=== PATIENT | female | born 1995 | race Caucasian/White ===

== ENCOUNTER 2017-12-03 01:18 | Emergency (ER) | payer OTHER, SELFPAY ==
[2017-12-03] MEDS ORDERED: METOCLOPRAMIDE 10 MG/2mL INJ ONE (01:41)
[2017-12-03] MEDS ORDERED: NA CHLORIDE 0.9% 1,000 ML ONE (01:42)
[2017-12-03] MEDS ORDERED: DIPHENHYDRAMINE 50 MG/ML VIAL ONE (01:42)
[2017-12-03 02:15] LABS: Absolute Lymphocytes (CBC) 4.5 K/uL (0.7-4.9); Absolute Monocytes 0.9 K/uL (0.1-1.3); Absolute Neutrophil 5.8 K/uL (1.8-8.0); Basophils % 0.9 % (0-1.3); Eosinophils % 1.2 % (0-4.4); Hematocrit 38.1 % (36.0-45.0); Lymphocytes % 39.5 % (15.3-44.8); MCH 28.7 pg (27.0-35.0); MCV 86.9 fL (80-100); MPV 8.6 fL (7.6-11.3); Monocytes % 7.7 % (3.3-12.3); RBC Red Blood Cell Count 4.38 M/uL (3.86-4.86)
[2017-12-03 02:24] LABS: Urine Blood NEGATIVE (NEG); Urine Glucose NEGATIVE (NEG); Urine Protein NEGATIVE (NEG); Urine Specific Gravity 1.025 (1.005-1.030)
[2017-12-03 02:35] LABS: ALT/SGPT 27 IU/L (10-60); AST/SGOT 23 IU/L (10-42); Alkaline Phosphatase 65 IU/L (42-121); BUN Blood Urea Nitrogen 15 mg/dL (6-20); Bicarbonate 24 mEq/L (21-31); Bilirubin Total 0.2 mg/dL (0.3-1.2); Glucose Level 117 mg/dL (65-120); Potassium 3.6 mEq/L (3.6-5.0); Protein, Total 7.7 g/dL (6.0-8.3); Sodium Level 138 mEq/L (135-145)
[2017-12-03 02:39] LABS: Urine Bacteria 20-50 /HPF (<20); Urine Culture Reflex Order REFLEXED; Urine RBC NONE SEEN /HPF (NONE SEEN)
--- NOTE | 2017-12-03 03:08 | EDPHYS ---
Physician Documentation [facility] Name: Leslie Knott Age: 22 yrs Sex: Female : 1995 Arrival Date: 12/03/2017 Time: 01:20 Bed 23 Private MD: ED Physician Angel Rosario HPI: 12/03 01:30 This 22 yrs old Female presents to ER via Ambulatory with complaints of jmm Headache, Worst Ever, Nausea. 01:30 The patient complains of pain to the left occipital area and right occipital area. The jm patient describes the headache as aching. Onset: The symptoms/episode began/occurred gradually, 5 hour(s) ago. Headache History: The patient has had previous headaches and this one is more severe than previous episodes. This is a 22 year old female with a history of migraine headache that presents to the ED with a gradual onset headache beginning at approx 8 pm this evening. Patient states the pain intensified beginning at 10 pm. Patient had no relief with tylenol. . 01:30 Patient denies changes in her vision but admits to photo sensitivity. . 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 - Social history:: Smoking status: Patient/guardian denies using tobacco. - Ebola Screening: : No symptoms or risks identified at this time. ROS: 01:30 Constitutional: Negative for fever, chills, and weight loss, Cardiovascular: Negative [facility] for chest pain, palpitations, and edema, Respiratory: Negative for shortness of breath, cough, wheezing, and pleuritic chest pain, Abdomen/GI: Negative for abdominal pain, nausea, vomiting, diarrhea, and constipation, Back: Negative for injury and pain, : Negative for injury, bleeding, discharge, and swelling, MS/Extremity: Negative for injury and deformity, Skin: Negative for injury, rash, and discoloration. 01:30 Neuro: Positive for headache. 01:30 All other systems are negative. Exam: 01:30 Head/Face: atraumatic. Chest/axilla: Normal chest wall appearance and motion. jmm Nontender with no deformity. No lesions are appreciated. Cardiovascular: Regular rate and rhythm. No gallops, murmurs, or rubs. Full/Equal distal pulses. Respiratory: Lungs have equal breath sounds bilaterally, clear to auscultation. No rales, rhonchi or wheezes noted. No increased work of breathing, no retractions or nasal flaring. 01:30 Constitutional: The patient appears in no acute distress, alert, awake. 01:30 Eyes: Pupils: equal and reactive to light, Extraocular movements: intact throughout. 01:30 Musculoskeletal/extremity: ROM: intact in all extremities. 01:30 Neuro: Orientation: is normal, Mentation: is normal, Memory: is normal, Cranial nerves: extraocular movements are intact, Facial palsy and sensory deficits are absent. Gait: is steady. Vital Signs: 01:26 BP 131 / 79; Pulse 76; Resp 18; Temp 98.1; Pulse Ox 100% on R/A; Weight 108.86 kg (R); ak1 Height 5 ft. 6 in. (167.64 cm) (R); Pain 5/10; 02:33 BP 109 / 66; Pulse 69; Resp 16; Pulse Ox 100% on R/A; mb3 03:03 BP 108 / 70; Pulse 68; Resp 16; Pulse Ox 98% on R/A; mb3 01:26 Body Mass Index 38.74 (108.86 kg, 167.64 cm) ak1 MDM: 01:30 Data reviewed: vital signs, nurses notes. [facility] 01:34 Patient medically screened. [facility] 02:23 Response to treatment: the patient's symptoms have markedly improved after treatment. [facility] Transition of care: After a detail discussion of the patient's case, care is transferred to Angel Rosario MD. 03:06 Data reviewed: radiologic studies, CT scan. [facility] 12/03 01:36 Order name: CBC with Diff; Complete Time: 02:25 [facility] 12/03 01:36 Order name: CMP; Complete Time: 03:09 [facility] 12/03 02:14 Order name: Urine Dipstick--Ancillary (enter results); Complete Time: 02:25 12/03 02:14 Order name: Urine --Ancillary (enter results); Complete Time: 02:25 12/03 02:22 Order name: Urine Microscopic Only; Complete Time: 03:09 [facility] 12/03 01:34 Order name: CT Head Brain wo Cont [facility] 12/03 01:36 Order name: Urine Test (obtain specimen); Complete Time: 02:31 [facility] 12/03 02:40 Order name: Urine Culture EDNM Administered Medications: 01:44 Drug: Reglan 10 mg Route: IVP; Site: right forearm; mb3 02:31 Follow up: Response: No adverse reaction mb3 01:44 Drug: diphenhydrAMINE 12.5 mg Route: IVP; Site: right forearm; mb3 02:30 Follow up: Response: No adverse reaction; Pain is decreased mb3 01:45 Drug: NS 0.9% 1000 ml Route: IV; Rate: 1 bolus; Site: right forearm; mb3 03:11 Follow up: IV Status: Completed infusion ak1 Disposition: 03:06 Co-signature as Attending Physician, Angel Rosario MD. pkl Disposition: 12/03/17 03:08 Discharged to Home. Impression: Acute headache. - Condition is Stable. - Prescriptions for Ultram 50 mg Oral Tablet - take 1 tablet by ORAL route every 8 hours As needed; 20 tablet. - Medication Reconciliation Form, Thank You Letter, Antibiotic Education, Prescription Opioid Use form. - Follow up: Private Physician; When: 2 - 3 days; Reason: Re-evaluation by your physician. - Problem is new. - Symptoms have improved. Signatures: Dispatcher [employer] [facility] Angel Rosario MD MD pkSabas Fried PA PA [facility] Leela Mccallum RN RN ak1 Dung Bell RN RN mb3 Corrections: (The following items were deleted from the chart) 02:22 01:36 URINALYSIS+U.LAB.BRZ ordered. [facility] 03:16 03:08 12/03/2017 03:08 Discharged to Home. Impression: Acute headache. Condition is ak1 Stable. Forms are Medication Reconciliation Form, Thank You Letter, Antibiotic Education, Prescription Opioid Use. Follow up: Private Physician; When: 2 - 3 days; Reason: Re-evaluation by your physician. Problem is new. Symptoms have improved. pkl
--- NOTE | 2017-12-03 03:08 | ER ---
Nurse's Notes [facility] Name: Leslie Knott Age: 22 yrs Sex: Female : 1995 Arrival Date: 12/03/2017 Time: 01:20 Bed 23 Private MD: Diagnosis: Acute headache Presentation: 12/03 01:25 Presenting complaint: Patient states: headache since 0 to back of head. pt c/o ak1 nausea. pt stated pain is worse when lying flat on her back. Transition of care: patient was not received from another setting of care. Onset of symptoms was December 02, 2017. Risk Assessment: Do you want to hurt yourself or someone else? Patient reports no desire to harm self or others. Initial Sepsis Screen: Does the patient meet any 2 criteria? No. Patient's initial sepsis screen is negative. Does the patient have a suspected source of infection? No. Patient's initial sepsis screen is negative. Care prior to arrival: 1 gram tylenol at midnight. 01:25 Method Of Arrival: Ambulatory ak1 01:25 Acuity: OVI 3 ak1 Triage Assessment: 01:26 Headache History: Denies prior headaches. General: Appears in no apparent distress. ak1 Behavior is calm, cooperative. Pain: Complains of pain in occipital area Pain currently is 5 out of 10 on a pain scale. Pain began 0 12/02/17 Also complains of nausea. EENT: No signs and/or symptoms were reported regarding the EENT system. Neuro: Level of Consciousness is awake, alert, obeys commands, Oriented to person, place, time, situation, Sem Manager are equal bilaterally Moves all extremities. Gait is steady, Speech is normal, Facial symmetry appears normal, Pupils are PERRLA. Cardiovascular: No deficits noted. Respiratory: No deficits noted. GI: Reports nausea. : No signs and/or symptoms were reported regarding the genitourinary system. Derm: No signs and/or symptoms reported regarding the dermatologic system. Musculoskeletal: No signs and/or symptoms reported regarding the musculoskeletal system. 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 - Social history:: Smoking status: Patient/guardian denies using tobacco. - Ebola Screening: : No symptoms or risks identified at this time. Screenin:29 Abuse screen: Denies threats or abuse. Denies injuries from another. Nutritional ak1 screening: No deficits noted. Tuberculosis screening: No symptoms or risk factors identified. Fall Risk None identified. Assessment: 01:50 General: Appears in no apparent distress. comfortable, Behavior is calm, cooperative, mb3 appropriate for age. Pain: Complains of pain in forehead, left base of the skull and right base of the skull. Neuro: No deficits noted. Level of Consciousness is awake, alert, obeys commands, Oriented to person, place, time, situation, Appropriate for age. Cardiovascular: No deficits noted. Respiratory: No deficits noted. GI: No deficits noted. : No deficits noted. 02:24 Reassessment: Patient appears in no apparent distress at this time. Patient and/or mb3 family updated on plan of care and expected duration. Pain level reassessed. Patient is alert, oriented x 3, equal unlabored respirations, skin warm/dry/pink. Patient states feeling better. Patient states symptoms have improved. 03:03 Reassessment: Patient appears in no apparent distress at this time. Patient and/or mb3 family updated on plan of care and expected duration. Pain level reassessed. Patient is alert, oriented x 3, equal unlabored respirations, skin warm/dry/pink. Patient denies pain at this time. Patient states feeling better. Patient states symptoms have improved. Vital Signs: 01:26 BP 131 / 79; Pulse 76; Resp 18; Temp 98.1; Pulse Ox 100% on R/A; Weight 108.86 kg (R); ak1 Height 5 ft. 6 in. (167.64 cm) (R); Pain 5/10; 02:33 BP 109 / 66; Pulse 69; Resp 16; Pulse Ox 100% on R/A; mb3 03:03 BP 108 / 70; Pulse 68; Resp 16; Pulse Ox 98% on R/A; mb3 01:26 Body Mass Index 38.74 (108.86 kg, 167.64 cm) ak1 ED Course: 01:20 Patient arrived in ED. am2 01:22 MicSabas casey, PA is PHCP. jmm 01:22 Dung Bell, AARON is Primary Nurse. mb3 01:26 Triage completed. ak1 01:26 Arm band placed on Patient placed in an exam room, on a stretcher, on pulse oximetry, ak1 Patient notified of wait time. 01:29 Patient has correct armband on for positive identification. Bed in low position. Call ak1 light in reach. Side rails up X 1. Pulse ox on. NIBP on. 01:40 Missed attempt(s): 20 gauge in right antecubital area. Bleeding controlled, band aid mb3 applied, catheter tip intact. 01:43 Inserted saline lock: 22 gauge in right forearm, using aseptic technique. mb3 01:55 CT Head Brain wo Cont In Process Unspecified. EDMS 01:56 CT completed. Patient tolerated procedure well. Patient moved to CT via stretcher. eh Patient moved back from CT. 02:27 Angel Rosario MD is Attending Physician. jmm 02:27 No provider procedures requiring assistance completed. mb3 03:11 IV discontinued, intact, bleeding controlled, No redness/swelling at site. Pressure ak1 dressing applied. Administered Medications: 01:44 Drug: Reglan 10 mg Route: IVP; Site: right forearm; mb3 02:31 Follow up: Response: No adverse reaction mb3 01:44 Drug: diphenhydrAMINE 12.5 mg Route: IVP; Site: right forearm; mb3 02:30 Follow up: Response: No adverse reaction; Pain is decreased mb3 01:45 Drug: NS 0.9% 1000 ml Route: IV; Rate: 1 bolus; Site: right forearm; mb3 03:11 Follow up: IV Status: Completed infusion ak1 Outcome: 03:08 Discharge ordered by . pkanshu 03:09 Discharged to home ambulatory. ak1 03:09 Condition: good 03:09 Discharge instructions given to patient, Instructed on discharge instructions, follow up and referral plans. no drinking with medication, no driving heavy equipment, medication usage, Demonstrated understanding of instructions, follow-up care, medications, Prescriptions given X 1. 03:16 Patient left the ED. ak1 Addendum: 12/07/2017 07:44 Addendum: Culture Results: Positive urine culture. No further action required. Other: s s OK per RAFAELA Jimenez as patient has no urinary complaints and has been instructed to follow up with PCP. Signatures: Dispatcher [employer] Angel Lin MD MD pkl Mickail, Joel, PA PA jmm Hagler, Ervin eh Smirch, Shelby RN RN ss Leela Mccallum RN RN ak1 Dinah Edgar am2 Dung Bell RN RN mb3
--- NOTE | 2017-12-03 08:28 | RAD REPORT ---
EXAM DESCRIPTION: CT - Head Brain Wo Cont - 12/03/2017 3:19 am CLINICAL HISTORY: Headache COMPARISON: None. TECHNIQUE: All CT scans are performed using dose optimization technique as appropriate and may inclu de automated exposure control or mA/KV adjustment according to patient size. FINDINGS: No intracranial hemorrhage, hydrocephalus or extra-axial fluid collection.No areas of brai n edema or evidence of midline shift. The paranasal sinuses and mastoids are clear. The calvarium is intact. IMPRESSION: No acute intracranial abnormality.
== END 2017-12-03 03:16 | disposition home or self-care (01) ==
LOC: ER 01:18
DX: R51 Headache (principal)
CPT/HCPCS: 36415; 70450; 80053; 81003; 81015; 81025; 85025; 87077; 87086; 87088; 87186; 96361; 96374; 96375; 99284; J2765; J7030